=== PATIENT | male | born 1985 | race Caucasian/White ===

== ENCOUNTER 2016-10-08 10:45 | Emergency (ER) | payer MEDICAID ==
[~2016-10-08] VITALS: Ht 182.9 cm; Wt 103.0 kg
[2016-10-08 13:13] VITALS: BP 116/77
[2016-10-08 13:25] LABS: BLOOD UREA NITROGEN 14 mg/dL (7-18)
== END 2016-10-08 13:49 | disposition home or self-care (01) ==
LOC: ED 13:43
DX: B35.3 Tinea pedis (principal); L03.115 Cellulitis of right lower limb; F17.210 Nicotine dependence, cigarettes, uncomplicated; M19.90 Unspecified osteoarthritis, unspecified site; Z59.0 Homelessness
CPT/HCPCS: 36415; 80048; 82040; 85025; 99284

== ENCOUNTER 2016-11-15 11:28 | Emergency (ER) | payer MEDICAID ==
[~2016-11-15] VITALS: Ht 182.9 cm; Wt 98.5 kg
[~2016-11-15 11:28] MED LIST: ACID1TAB7 PO; CLIN-60 PO
[2016-11-15 11:32] VITALS: BP 116/79
[2016-11-15] MEDS ORDERED: IBUPROFEN 200 MG TABLET PO ONE (12:00)
[2016-11-15] MEDS ORDERED: IBUPROFEN 200 MG TABLET ONE (12:06)
== END 2016-11-15 12:14 | disposition home or self-care (01) ==
LOC: ED 12:12
DX: G89.29 Other chronic pain (principal); M54.5 Low back pain; M19.90 Unspecified osteoarthritis, unspecified site; Z88.0 Allergy status to penicillin
CPT/HCPCS: 99283

== ENCOUNTER 2017-01-26 17:49 | Inpatient (IN) | payer MEDICAID ==
[~2017-01-26] VITALS: Ht 182.9 cm; Wt 120.6 kg
[2017-01-26] MEDS ORDERED: CYCL-259 PO (18:13)
[2017-01-26] MEDS ORDERED: NAPR500T3 PO (18:13)
[2017-01-26 18:24] LABS: HEMATOCRIT 44.2 % (39.2-51.8); HEMOGLOBIN 15.1 g/dL (13.7-18.0); WHITE BLOOD COUNT 8.2 x10^3/uL (3.4-10)
[2017-01-26] MEDS ORDERED: KETOROLAC 30 MG/1 ML ONE (18:25)
[2017-01-26] MEDS ORDERED: DEXAMETHASONE 4 MG/ML, 5ML ONE (18:26)
[2017-01-26] MEDS ORDERED: SODIUM CHLORIDE 0.9% 1,000ML IVBOLUS ONE (18:30)
[2017-01-26] MEDS ORDERED: KETOROLAC 30 MG/1 ML IVPush ONE (18:30)
[2017-01-26] MEDS ORDERED: DEXAMETHASONE 4 MG/ML, 1ML IVPush ONE (18:30)
[2017-01-26 18:33] LABS: BLOOD UREA NITROGEN 46 mg/dL (7-18)
[2017-01-26] MEDS ORDERED: BACITRACIN ZINC OINT 500U/GM, 0.9 GM TP ONE (19:30)
[2017-01-26] MEDS ORDERED: BACITRACIN ZINC OINT 500U/GM, 0.9 GM ONE (20:21)
[2017-01-26] MEDS ORDERED: SODIUM CHLORIDE 0.9% 1,000 ML IV SCH (20:28)
[2017-01-26] MEDS: NEOSPORIN OINT, 15GM TP SCH (21:00)
[2017-01-26 21:01] LABS: IS PT STATUS REG ER OR PRE ER? YES
[2017-01-26 21:32] VITALS: BP 133/90
[2017-01-26] MEDS: HEPARIN 5,000 UNITS/ML, 1ML SQ SCH (22:51)
[2017-01-27 02:06] LABS: HEMATOCRIT 43.5 % (39.2-51.8); HEMOGLOBIN 14.6 g/dL (13.7-18.0); WHITE BLOOD COUNT 8.2 x10^3/uL (3.4-10)
[2017-01-27 02:13] VITALS: BP 103/68
[2017-01-27 02:24] LABS: BLOOD UREA NITROGEN 53 mg/dL (7-18)
[2017-01-27 02:33] LABS: IS PT STATUS REG ER OR PRE ER? NO
[2017-01-27 02:48] LABS: DAU SCREEN DISCLAIMER
[2017-01-27] MEDS: SODIUM CHLORIDE 0.9% 1,000 ML IV SCH ×3 (06:11→20:55)
[2017-01-27 07:47] VITALS: BP 103/68
[2017-01-27] MEDS: ACETAMINOPHEN 325 MG TABLET PO PRN (08:34)
[2017-01-27] MEDS: HEPARIN 5,000 UNITS/ML, 1ML SQ SCH ×2 (08:34→20:52)
[2017-01-27] MEDS: NEOSPORIN OINT, 15GM TP SCH ×3 (08:35→20:52)
[2017-01-27 15:02] VITALS: BP 119/78
[2017-01-27 15:07] VITALS: BP 114/78
[2017-01-27 15:12] VITALS: BP 125/86
[2017-01-27 20:00] VITALS: BP 122/73
[2017-01-27] MEDS ORDERED: SODIUM CHLORIDE 0.9% 1,000 ML IV SCH (20:28)
[2017-01-28 02:48] VITALS: BP_SYST 136; BP_SYST 137; BP_SYST 145; BP_DIAS 90; BP_DIAS 92; BP_DIAS 93
[2017-01-28] MEDS: SODIUM CHLORIDE 0.9% 1,000 ML IV SCH ×3 (05:17→21:46)
[2017-01-28 05:32] LABS: HEMOGLOBIN 13.7 g/dL (13.7-18.0); WHITE BLOOD COUNT 7.5 x10^3/uL (3.4-10)
[2017-01-28 05:49] LABS: ASPARTATE AMINO TRANSFERASE 12 U/L (15-37); BLOOD UREA NITROGEN 87 mg/dL (7-18)
[2017-01-28 08:04] VITALS: BP 135/85
[2017-01-28] MEDS: HEPARIN 5,000 UNITS/ML, 1ML SQ SCH ×2 (10:08→21:19)
[2017-01-28] MEDS: NEOSPORIN OINT, 15GM TP SCH ×3 (10:09→21:19)
[2017-01-28] MEDS: ACETAMINOPHEN 325 MG TABLET PO PRN ×3 (10:41→21:25)
[2017-01-28 16:46] VITALS: BP 145/87
[2017-01-28 19:02] VITALS: BP 102/88
[2017-01-28 19:15] VITALS: BP 138/89
[2017-01-28] MEDS ORDERED: CEFTRIAXONE PMX 1GM/50ML 50 ML IV ONE (21:00)
[2017-01-29 04:20] VITALS: BP 101/62
[2017-01-29] MEDS: SODIUM CHLORIDE 0.9% 1,000 ML IV SCH ×3 (05:35→22:20)
[2017-01-29 05:48] LABS: BLOOD UREA NITROGEN 83 mg/dL (7-18)
[2017-01-29 07:00] VITALS: BP 134/83
[2017-01-29] MEDS: NEOSPORIN OINT, 15GM TP SCH ×2 (09:00→16:00)
[2017-01-29] MEDS: ACETAMINOPHEN 325 MG TABLET PO PRN ×2 (10:10→17:44)
[2017-01-29] MEDS: SILVER SULF. CRM 1% , 25GM TP SCH (10:11)
[2017-01-29] MEDS: HEPARIN 5,000 UNITS/ML, 1ML SQ SCH ×2 (10:11→20:48)
[2017-01-29 13:14] VITALS: BP 134/89
[2017-01-29 13:31] LABS: RHEUMATOID FACTOR SCREEN NEGATIVE (NEGATIVE)
[2017-01-29 18:30] VITALS: BP 135/91
[2017-01-29] MEDS: CEFTRIAXONE PMX 1GM/50ML 50 ML IV SCH (20:47)
[2017-01-30 00:50] VITALS: BP 128/93
[2017-01-30] MEDS: SODIUM CHLORIDE 0.9% 1,000 ML IV SCH ×2 (05:33→14:00)
[2017-01-30 05:48] LABS: HEMATOCRIT 37.8 % (39.2-51.8); HEMOGLOBIN 12.9 g/dL (13.7-18.0); WHITE BLOOD COUNT 4.9 x10^3/uL (3.4-10)
[2017-01-30 05:50] LABS: BLOOD UREA NITROGEN 78 mg/dL (7-18)
[2017-01-30 07:41] VITALS: BP 138/85
[2017-01-30] MEDS: HEPARIN 5,000 UNITS/ML, 1ML SQ SCH ×2 (08:44→20:33)
[2017-01-30] MEDS: SILVER SULF. CRM 1% , 25GM TP SCH (08:44)
[2017-01-30 12:00] VITALS: BP 141/87
[2017-01-30 20:33] VITALS: BP 149/107
[2017-01-30] MEDS: CEFTRIAXONE PMX 1GM/50ML 50 ML IV SCH (20:33)
[2017-01-30] MEDS: ACETAMINOPHEN 325 MG TABLET PO PRN (20:55)
[2017-01-31] MEDS: SODIUM CHLORIDE 0.9% 1,000 ML IV SCH ×3 (00:18→16:15)
[2017-01-31 01:15] VITALS: BP 141/92
[2017-01-31 01:16] LABS: COMPLEMENT C3 10 mg/dL (82-167); COMPLEMENT C4 9 mg/dL (14-44); COMPLEMENT TOTAL (CH50) 24 U/mL (42-60)
[2017-01-31 06:10] LABS: HEMATOCRIT 38.8 % (39.2-51.8); HEMOGLOBIN 13.1 g/dL (13.7-18.0); WHITE BLOOD COUNT 5.6 x10^3/uL (3.4-10)
[2017-01-31 06:23] LABS: BLOOD UREA NITROGEN 71 mg/dL (7-18)
[2017-01-31 08:45] VITALS: BP 137/94
[2017-01-31] MEDS: SILVER SULF. CRM 1% , 25GM TP SCH (09:46)
[2017-01-31] MEDS: HEPARIN 5,000 UNITS/ML, 1ML SQ SCH ×2 (09:46→20:05)
[2017-01-31 14:00] VITALS: BP 142/87
[2017-01-31 19:50] VITALS: BP_SYST 103; BP_SYST 136; BP_DIAS 59; BP_DIAS 85
[2017-01-31] MEDS: CEFTRIAXONE PMX 1GM/50ML 50 ML IV SCH (20:05)
[2017-02-01] MEDS: SODIUM CHLORIDE 0.9% 1,000 ML IV SCH ×4 (00:36→22:48)
[2017-02-01 01:37] VITALS: BP 126/82
[2017-02-01 05:02] LABS: HEMATOCRIT 37.4 % (39.2-51.8); HEMOGLOBIN 12.7 g/dL (13.7-18.0); WHITE BLOOD COUNT 5.1 x10^3/uL (3.4-10)
[2017-02-01 05:10] LABS: BLOOD UREA NITROGEN 70 mg/dL (7-18)
[2017-02-01 05:42] VITALS: BP 127/96
[2017-02-01] MEDS ORDERED: KETOROLAC 30 MG/1 ML IVPush ONE (06:00)
[2017-02-01 07:47] VITALS: BP 141/90
[2017-02-01] MEDS: SILVER SULF. CRM 1% , 25GM TP SCH (08:47)
[2017-02-01] MEDS: HEPARIN 5,000 UNITS/ML, 1ML SQ SCH ×2 (08:50→20:47)
[2017-02-01 12:32] VITALS: BP 132/84
[2017-02-01 12:43] LABS: ANTISTREPTOLYSIN-O TITER 800 IU/mL
[2017-02-01 19:10] VITALS: BP 134/85
[2017-02-01] MEDS: CEFTRIAXONE PMX 1GM/50ML 50 ML IV SCH (20:46)
[2017-02-02 01:40] VITALS: BP 147/91
[2017-02-02] MEDS ORDERED: SODIUM CHLORIDE 0.9% 1,000 ML IV SCH (06:00)
[2017-02-02 06:23] LABS: BLOOD UREA NITROGEN 64 mg/dL (7-18)
[2017-02-02 07:47] VITALS: BP 135/86
[2017-02-02] MEDS: HEPARIN 5,000 UNITS/ML, 1ML SQ SCH ×2 (08:58→20:20)
[2017-02-02] MEDS: SILVER SULF. CRM 1% , 25GM TP SCH (08:58)
[2017-02-02] MEDS: SODIUM CHLORIDE 0.9% 1,000 ML IV SCH (11:40)
[2017-02-02 13:40] VITALS: BP 149/100
[2017-02-02 18:56] VITALS: BP 154/90
[2017-02-02] MEDS: CEFTRIAXONE PMX 1GM/50ML 50 ML IV SCH (20:20)
[2017-02-03] MEDS: ACETAMINOPHEN 325 MG TABLET PO PRN ×2 (02:01→06:44)
[2017-02-03 02:16] VITALS: BP 152/92
[2017-02-03 05:47] LABS: HEMATOCRIT 35.9 % (39.2-51.8); HEMOGLOBIN 12.2 g/dL (13.7-18.0); WHITE BLOOD COUNT 5.5 x10^3/uL (3.4-10)
[2017-02-03 05:59] LABS: BLOOD UREA NITROGEN 55 mg/dL (7-18)
[2017-02-03 06:49] VITALS: BP 154/94
[2017-02-03] MEDS: SILVER SULF. CRM 1% , 25GM TP SCH (08:40)
[2017-02-03] MEDS: HEPARIN 5,000 UNITS/ML, 1ML SQ SCH ×2 (08:42→21:16)
[2017-02-03 12:07] LABS: HEPATITIS B SURFACE AG SCREEN Negative (Negative); HEPATITIS Be AB Negative (Negative); HEPATITIS Be AG Negative (Negative); HEPATITIS C VIRUS AB <0.1 s/co ratio (0.0-0.9)
[2017-02-03 12:40] VITALS: BP 142/90
[2017-02-03 13:06] LABS: PROTEINASE 3 (PR-3) AB <3.5 U/mL (0.0-3.5)
[2017-02-03] MEDS: CEFTRIAXONE PMX 1GM/50ML 50 ML IV SCH (20:02)
[2017-02-03 20:48] VITALS: BP 150/92
[2017-02-04 04:13] VITALS: BP 160/102
[2017-02-04 04:59] LABS: BLOOD UREA NITROGEN 52 mg/dL (7-18)
[2017-02-04 07:45] VITALS: BP 149/99
[2017-02-04] MEDS: HEPARIN 5,000 UNITS/ML, 1ML SQ SCH (09:20)
[2017-02-04] MEDS: SILVER SULF. CRM 1% , 25GM TP SCH (09:21)
[2017-02-04] MEDS ORDERED: CEPH-368 PO (10:59)
[2017-02-04 12:33] VITALS: BP 150/109
== END 2017-02-04 13:48 | disposition home or self-care (01) | DRG 683 ==
LOC: ED 19:34 → EDIP 19:58 → 4WST 21:03 → DCLOUNGE 02-04 13:19
PROVIDERS: ADMIT Internal Medicine; ATTEND Internal Medicine
PROC: 0T9B70Z Drainage of Bladder with Drainage Device, Via Natural or Artificial Opening (ICD-10-PCS; principal; 2017-01-28)
DX: N17.9 Acute kidney failure, unspecified (principal); E87.1 Hypo-osmolality and hyponatremia; I47.2 Ventricular tachycardia; E87.2 Acidosis; E88.09 Other disorders of plasma-protein metabolism, not elsewhere classified; F17.210 Nicotine dependence, cigarettes, uncomplicated; Z59.0 Homelessness; Z88.0 Allergy status to penicillin; M10.9 Gout, unspecified; Z82.61 Family history of arthritis; M51.37 Other intervertebral disc degeneration, lumbosacral region
CPT/HCPCS: 36415; 71010; 72146; 72148; 76770; 80048; 80053; 80076; 80307; 81001; 82040; 82550; 82570; 83520; 83605; 83735; 84300; 84439; 84443; 84484; 85025; 85651; 86038; 86060; 86063; 86140; 86160; 86162; 86256; 86430; 86704; 86705; 86706; 86707; 86708; 86803; 87040; 87086; 87340; 87350; 93005; 93306; 96361; 96374; 96375; J0696; J1100; J1644; J1885; 86226; J7030

== ENCOUNTER 2017-02-07 20:45 | Emergency (ER) | payer MEDICAID ==
[~2017-02-07] VITALS: Ht 182.9 cm; Wt 100.0 kg
[~2017-02-07 20:45] MED LIST changes: +CEPH-368 PO; +CYCL-259 PO; +NAPR500T3 PO
[2017-02-07] MEDS ORDERED: PROCHLORPERAZINE 5 MG/ML, 2ML ONE (21:19)
[2017-02-07] MEDS ORDERED: PROCHLORPERAZINE 5 MG/ML, 2ML IVPush ONE (21:30)
[2017-02-07] MEDS ORDERED: SODIUM CHLORIDE FLUSH 10ML SYR IVF ONE (21:30)
[2017-02-07] MEDS ORDERED: ACETAMINOPHEN 325 MG TABLET PO ONE (21:30)
[2017-02-07 22:24] LABS: HEMATOCRIT 34.4 % (39.2-51.8); HEMOGLOBIN 11.6 g/dL (13.7-18.0); WHITE BLOOD COUNT 8.1 x10^3/uL (3.4-10)
[2017-02-07 22:30] LABS: BLOOD UREA NITROGEN 34 mg/dL (7-18)
[2017-02-07 22:52] VITALS: BP 158/98
== END 2017-02-07 23:01 | disposition home or self-care (01) ==
LOC: ED 22:50
DX: G43.001 Migraine without aura, not intractable, with status migrainosus (principal); Z72.9 Problem related to lifestyle, unspecified; E87.1 Hypo-osmolality and hyponatremia; Z88.0 Allergy status to penicillin
CPT/HCPCS: 36415; 70450; 80048; 82040; 85025; 96374; 99285; J0780

== ENCOUNTER 2017-02-13 20:39 | Inpatient (IN) | payer MEDICAID ==
[~2017-02-13] VITALS: Ht 182.9 cm; Wt 102.4 kg
[2017-02-13] MEDS ORDERED: TYLENOL (20:52)
[2017-02-13] MEDS ORDERED: SODIUM CHLORIDE 0.9% 1,000ML IVBOLUS ONE (21:30)
[2017-02-13 21:54] LABS: HEMATOCRIT 25.4 % (39.2-51.8); HEMOGLOBIN 8.4 g/dL (13.7-18.0); WHITE BLOOD COUNT 6.6 x10^3/uL (3.4-10)
[2017-02-13 21:55] LABS: ASPARTATE AMINO TRANSFERASE 13 U/L (15-37); BLOOD UREA NITROGEN 42 mg/dL (7-18)
[2017-02-14 00:02] VITALS: BP 153/99
[2017-02-14] MEDS ORDERED: MOVIPREP POWDER 1 PREP KIT PO ONE (00:30)
[2017-02-14] MEDS ORDERED: ONDANSETRON 2MG/ML, 2ML IVPush PRN (00:30)
[2017-02-14 01:31] LABS: DAU SCREEN DISCLAIMER
[2017-02-14 02:45] VITALS: BP 138/93
[2017-02-14 08:01] VITALS: BP 142/99
[2017-02-14] MEDS: PANTOPRAZOLE 40 MG IV IVPush SCH (08:03)
[2017-02-14] MEDS: NICOTINE 7 MG/24 HR PATCH.TD24 TD SCH (08:04)
[2017-02-14] MEDS ORDERED: MIDAZOLAM 1 MG/ML, 2ML ONE (10:57)
[2017-02-14] MEDS ORDERED: FENTANYL PF 100 MCG/2ML ONE (10:57)
[2017-02-14] MEDS ORDERED: PROPOFOL 10 MG/ML, 50ML ONE (11:16)
[2017-02-14] MEDS ORDERED: PROMETHAZINE 25 MG/ML, 1ML IV PRN (11:30)
[2017-02-14] MEDS ORDERED: ACETAMINOPHEN 325 MG TABLET PO PRN (11:30)
[2017-02-14] MEDS ORDERED: MEPERIDINE/PF 25MG/0.5ML IVPush PRN (11:30)
[2017-02-14] MEDS ORDERED: HYDROmorphone 1 MG/ML, 1ML IV PRN (11:30)
[2017-02-14] MEDS ORDERED: FENTANYL PF 100 MCG/2ML IV PRN (11:30)
[2017-02-14] MEDS ORDERED: OXYcodone 5 MG/5 ML ORAL.SOL UDC PO PRN (11:30)
[2017-02-14 14:15] VITALS: BP 138/95
[2017-02-14 20:56] VITALS: BP_SYST 142; BP_SYST 163; BP_DIAS 100; BP_DIAS 94
[2017-02-14 23:30] VITALS: BP 154/93
[2017-02-15 03:45] VITALS: BP 133/82
[2017-02-15 05:57] LABS: HEMOGLOBIN 7.4 g/dL (13.7-18.0); WHITE BLOOD COUNT 5.6 x10^3/uL (3.4-10)
[2017-02-15 05:59] LABS: HEMATOCRIT 22.1 % (39.2-51.8)
[2017-02-15 06:35] LABS: BLOOD UREA NITROGEN 23 mg/dL (7-18)
[2017-02-15] MEDS ORDERED: SODIUM CHLORIDE 0.9%, 500ML IVBOLUS ONE (07:00)
[2017-02-15 08:25] VITALS: BP 127/77
[2017-02-15] MEDS: PANTOPRAZOLE 40 MG IV IVPush SCH (10:05)
[2017-02-15] MEDS: NICOTINE 7 MG/24 HR PATCH.TD24 TD SCH (10:06)
[2017-02-15 10:42] LABS: TOTAL IRON BINDING CAPACITY 233 mcg/dL (250-450)
[2017-02-15 11:07] VITALS: BP 128/87
[2017-02-15 11:20] VITALS: BP 130/87
[2017-02-15 14:45] VITALS: BP 145/94
[2017-02-15] MEDS ORDERED: ACETAMINOPHEN 325 MG TABLET PO PRN ×2 (15:00→21:00)
[2017-02-15] MEDS ORDERED: PROMETHAZINE 25 MG/ML, 1ML IV PRN (15:00)
[2017-02-15] MEDS ORDERED: ONDANSETRON 2MG/ML, 2ML IVPush PRN (15:00)
[2017-02-15] MEDS ORDERED: HYDROmorphone 1 MG/ML, 1ML IV PRN (15:00)
[2017-02-15] MEDS ORDERED: OXYcodone 5 MG/5 ML ORAL.SOL UDC PO PRN (15:00)
[2017-02-15] MEDS ORDERED: FENTANYL PF 100 MCG/2ML IV PRN (15:00)
[2017-02-15] MEDS ORDERED: MEPERIDINE/PF 25MG/0.5ML IVPush PRN (15:00)
[2017-02-15 19:30] VITALS: BP 131/83
[2017-02-15] MEDS: FERROUS SULFATE 325 MG TABLET PO SCH (22:25)
[2017-02-16 03:25] VITALS: BP 157/86
[2017-02-16 05:41] LABS: HEMOGLOBIN 8.1 g/dL (13.7-18.0); WHITE BLOOD COUNT 6.2 x10^3/uL (3.4-10)
[2017-02-16 05:48] LABS: FERRITIN 323.8 ng/mL (26-388)
[2017-02-16 07:30] VITALS: BP 132/93
[2017-02-16] MEDS: FERROUS SULFATE 325 MG TABLET PO SCH (08:15)
[2017-02-16] MEDS: PANTOPRAZOLE 40 MG IV IVPush SCH (08:15)
[2017-02-16] MEDS: NICOTINE 7 MG/24 HR PATCH.TD24 TD SCH (08:16)
[2017-02-16 09:46] LABS: BLOOD UREA NITROGEN 22 mg/dL (7-18)
[2017-02-16 09:49] LABS: ASPARTATE AMINO TRANSFERASE 12 U/L (15-37)
[2017-02-16] MEDS ORDERED: FERR325T20 PO (10:19)
[2017-02-16 13:32] VITALS: BP 126/80
== END 2017-02-16 17:19 | disposition home or self-care (01) | DRG 377 ==
LOC: ED 23:16 → 4NOR 23:30
PROVIDERS: ADMIT Family Medicine; ATTEND Family Medicine
PROC: 0DJD8ZZ Inspection of Lower Intestinal Tract, Via Natural or Artificial Opening Endoscopic (ICD-10-PCS; 2017-02-14)
PROC: 0DJ08ZZ Inspection of Upper Intestinal Tract, Via Natural or Artificial Opening Endoscopic (ICD-10-PCS; principal; 2017-02-14 10:00)
PROC: 30233N1 Transfusion of Nonautologous Red Blood Cells into Peripheral Vein, Percutaneous Approach (ICD-10-PCS; 2017-02-15)
DX: K92.0 Hematemesis (principal); N17.0 Acute kidney failure with tubular necrosis; D62 Acute posthemorrhagic anemia; E87.5 Hyperkalemia; I12.9 Hypertensive chronic kidney disease with stage 1 through stage 4 chronic kidney disease, or unspecified chronic kidney disease; E61.1 Iron deficiency; E66.9 Obesity, unspecified; Z68.30 Body mass index [BMI] 30.0-30.9, adult; F17.210 Nicotine dependence, cigarettes, uncomplicated; K64.8 Other hemorrhoids; N18.9 Chronic kidney disease, unspecified; Z59.0 Homelessness
CPT/HCPCS: 36415; 78290; 80048; 80053; 80307; 81001; 82728; 83540; 83550; 83690; 85025; 85610; 85730; 86850; 86900; 86923; 87086; 96360; J2250; J2704; J3010; A9512; C9113; C9898; J7030; J7040; P9016

== ENCOUNTER 2018-04-02 08:27 | Emergency (ER) | payer MEDICAID ==
[~2018-04-02] VITALS: Ht 172.7 cm; Wt 90.9 kg
[~2018-04-02 08:27] MED LIST changes: -CLIN-60 PO; +CLIN150C14 PO; +FERR325T18 PO; +NAPR-685 PO; -NAPR500T3 PO; +TYLENOL
[2018-04-02] MEDS ORDERED: LISI2.5T PO (08:38)
[2018-04-02] MEDS ORDERED: CYCLOBENZAPRINE 10 MG TABLET PO STA (09:01)
[2018-04-02] MEDS ORDERED: CYCLOBENZAPRINE 10 MG TABLET ONE (09:23)
[2018-04-02] MEDS ORDERED: HYDROcodone/APAP 5/325 TABLET ONE (09:23)
[2018-04-02] MEDS ORDERED: HYDROcodone/APAP 5/325 TABLET PO ONE (09:30)
[2018-04-02 10:14] VITALS: BP 139/92
== END 2018-04-02 10:16 | disposition home or self-care (01) ==
LOC: ED 10:00
DX: M54.41 Lumbago with sciatica, right side (principal); M51.36 Other intervertebral disc degeneration, lumbar region; G43.909 Migraine, unspecified, not intractable, without status migrainosus
CPT/HCPCS: 99283